=== PATIENT | male | born 1925 | race Caucasian/White ===

== ENCOUNTER 2016-10-27 15:46 | Emergency (ER) | payer BC, MEDICARE ==
[2016-10-27 16:10] VITALS: RESP 18
[2016-10-27] MEDS ORDERED: MECLIZINE 25 MG TAB PO STA ×2 (16:14→18:04)
[2016-10-27] MEDS ORDERED: DIAZEPAM 5 MG/ML 2 ML SYRINGE IVP STA (16:14)
--- NOTE | 2016-10-27 16:18 | ED ---
General Adult HPI - General Chief complaint: Dizziness Stated complaint: Dizzy Time Seen by Provider: 10/27/16 16:00 Source: patient, family, RN notes reviewed Mode of arrival: wheelchair Limitations: no limitations - History of Present Illness Initial comments: This is an 89-year-old male who presents emergency Department complaining of dizziness. Patient states she has to grab onto thinks she's been a fall over. Patient states nausea is also associated with the dizziness. Patient states he has not vomited however. Patient states he has had dizzy spells many times for quite a few years. Patient comes in today because some friends were concerned and they brought him to the emergency department. Patient denies any headache patient denies any numbness or weakness. Patient denies any visual disturbance or speech disturbance. Patient denies any palpitations. Patient denies chest pain difficulty breathing or shortness of breath. Patient denies any recent fever or chills. Patient denies abdominal pain. Patient denies any dysuria hematuria urinary frequency. - Related Data Home Medications Medication Instructions Recorded Confirmed Acetaminophen/Diphenhydramine 1 tab PO HS PRN 10/27/16 10/27/16 [Tylenol PM 500-25mg] Aspirin 325 mg PO HS 10/27/16 10/27/16 Cholecalciferol [Vitamin D3] 1,000 unit PO HS 10/27/16 10/27/16 Doxazosin [Cardura] 4 mg PO HS 10/27/16 10/27/16 Flaxseed Oil [[place]-3 Flaxseed Oil] 1,000 mg PO QAM 10/27/16 10/27/16 Glimepiride [Amaryl] 2 mg PO AC-BRKFST 10/27/16 10/27/16 Glucosamine/Chondr Amaral A Sod [Osteo 1 tab PO QAM 10/27/16 10/27/16 Bi-Flex Caplet] Levothyroxine Sodium [Synthroid] 25 mcg PO QAM 10/27/16 10/27/16 Lisinopril 20 mg PO BID 10/27/16 10/27/16 [place]-3/Dha/Epa/Fish Oil [Fish Oil 1 cap PO QAM 10/27/16 10/27/16 1,000 mg Softgel] Simvastatin 40 mg PO HS 10/27/16 10/27/16 Vitamin E 1,000 unit PO QAM 10/27/16 10/27/16 amLODIPine [Norvasc] 5 mg PO QAM 10/27/16 10/27/16 metFORMIN HCL [Glucophage] 500 mg PO HS 10/27/16 10/27/16 Previous Rx's Medication Instructions Recorded Meclizine [Antivert] 25 mg PO TID #20 tab 10/27/16 Allergies Allergy/AdvReac Type Severity Reaction Status Date / Time No Known Allergies Allergy Verified 10/27/16 16:14 Review of Systems ROS Statement: Those systems with pertinent positive or pertinent negative responses have been documented in the HPI. ROS Other: All systems not noted in ROS Statement are negative. Past Medical History Past Medical History: Dementia, Hyperlipidemia, Hypertension History of Any Multi-Drug Resistant Organisms: None Reported Past Surgical History: No Surgical Hx Reported Past Psychological History: No Psychological Hx Reported Smoking Status: Former smoker Past Alcohol Use History: Occasional Past Drug Use History: None Reported General Exam - General Exam Comments Initial Comments: GENERAL: Patient is well-developed and well-nourished. Patient is nontoxic and well- hydrated and is in mild distress. ENT: Neck is soft and supple. No significant lymphadenopathy is noted. Oropharynx is clear. Moist mucous membranes. Neck has full range of motion without eliciting any pain. EYES: The sclera were anicteric and conjunctiva were pink and moist. Extraocular movements were intact and pupils were equal round and reactive to light. Eyelids were unremarkable. PULMONARY: Patient has crackles in the bilateral bases CARDIOVASCULAR: There is a regular rate and rhythm without any murmurs gallops or rubs. ABDOMEN: Soft and nontender with normal bowel sounds. No palpable organomegaly was noted. There is no palpable pulsatile mass. SKIN: Skin is clear with no lesions or rashes and otherwise unremarkable. NEUROLOGIC: Patient is alert and oriented x3. Cranial nerves II through XII are grossly intact. Motor and sensory are also intact. Normal speech, volume and content. Symmetrical smile. Finger to nose testing bilaterally was normal MUSCULOSKELETAL: Normal extremities with adequate strength and full range of motion. No lower extremity swelling or edema. No calf tenderness. LYMPHATICS: No significant lymphadenopathy is noted PSYCHIATRIC: Normal psychiatric evaluation. Normal interpersonal interactions appears functionally intact in deals appropriately with others. No signs of depression. No signs of anxiety. Limitations: no limitations Course Vital Signs 0610/27/16 10/27/16 15:53 16:09 17:10 Temperature 99.2 F Pulse Rate 78 74 69 Respiratory 20 18 18 Rate Blood Pressure 80/47 126/58 126/66 O2 Sat by Pulse 96 93 L 95 Oximetry 10/27/16 18:13 Temperature 98.0 F Pulse Rate 78 Respiratory 18 Rate Blood Pressure 136/61 O2 Sat by Pulse 96 Oximetry Medical Decision Making - Medical Decision Making EKG shows normal sinus rhythm at 74 bpm AL interval 144 QRS is 110 Q-T intervals 392 QTC is 435 per patient's EKG shows some T-wave inversions and some ST segment depression in leads V4 V5 and V6 as well as leads [address] of the brain shows no acute normalities. Chest x-ray shows no acute normalities. Patient received a little Valium and some Antivert patient was able to ablate without dizziness he stated he had no symptoms at this point. I suggested the patient stated have repeat troponins to make sure the troponins don't continue to elevate patient refused I talked to him again about it he continued to refuse he states she'll follow-up with his doctor on his appointment on - Lab Data Result diagrams: 10/27/16 16:22 10/27/16 16:22 Lab Results 10/27/16 10/27/16 10/27/16 Range/Units 16:22 16:22 16:22 WBC 7.6 (3.8-10.6) k/uL RBC 4.77 (4.30-5.90) m/uL Hgb 14.2 (13.0-17.5) gm/dL Hct 42.9 (39.0-53.0) % MCV 90.1 (80.0-100.0) fL MCH 29.9 (25.0-35.0) pg MCHC 33.2 (31.0-37.0) g/dL RDW 13.7 (11.5-15.5) % Plt Count 155 (150-450) k/uL Neutrophils % 51 % Lymphocytes % 35 % Monocytes % 7 % Eosinophils % 2 % Basophils % 1 % Neutrophils # 3.8 (1.3-7.7) k/uL Lymphocytes # 2.7 (1.0-4.8) k/uL Monocytes # 0.6 (0-1.0) k/uL Eosinophils # 0.1 (0-0.7) k/uL Basophils # 0.1 (0-0.2) k/uL PT (9.0-12.0) sec INR (<1.1) APTT (22.0-30.0) sec Sodium 137 (137-145) mmol/L Potassium 4.3 (3.5-5.1) mmol/L Chloride 102 (98-107) mmol/L Carbon Dioxide 24 (22-30) mmol/L Anion Gap 11 mmol/L BUN 20 (9-20) mg/dL Creatinine 1.10 (0.66-1.25) mg/dL Est GFR (MDRD) Af Amer >60 (>60 ml/min/1.73 sqM) Est GFR (MDRD) Non-Af >60 (>60 ml/min/1.73 sqM) Glucose 113 H (74-99) mg/dL Calcium 9.1 (8.4-10.2) mg/dL Magnesium 1.8 (1.6-2.3) mg/dL Total Bilirubin 0.9 (0.2-1.3) mg/dL AST 28 (17-59) U/L ALT 37 (21-72) U/L Alkaline Phosphatase 71 (38-126) U/L Total Creatine Kinase 74 (55-170) U/L CK-MB (CK-2) 0.7 (0.0-2.4) ng/mL CK-MB (CK-2) Rel Index 0.9 Troponin I 0.049 H* (0.000-0.034) ng/mL Total Protein 6.7 (6.3-8.2) g/dL Albumin 4.0 (3.5-5.0) g/dL 10/27/16 Range/Units 16:22 WBC (3.8-10.6) k/uL RBC (4.30-5.90) m/uL Hgb (13.0-17.5) gm/dL Hct (39.0-53.0) % MCV (80.0-100.0) fL MCH (25.0-35.0) pg MCHC (31.0-37.0) g/dL RDW (11.5-15.5) % Plt Count (150-450) k/uL Neutrophils % % Lymphocytes % % Monocytes % % Eosinophils % % Basophils % % Neutrophils # (1.3-7.7) k/uL Lymphocytes # (1.0-4.8) k/uL Monocytes # (0-1.0) k/uL Eosinophils # (0-0.7) k/uL Basophils # (0-0.2) k/uL PT 11.0 (9.0-12.0) sec INR 1.1 (<1.1) APTT 24.2 (22.0-30.0) sec Sodium (137-145) mmol/L Potassium (3.5-5.1) mmol/L Chloride (98-107) mmol/L Carbon Dioxide (22-30) mmol/L Anion Gap mmol/L BUN (9-20) mg/dL Creatinine (0.66-1.25) mg/dL Est GFR (MDRD) Af Amer (>60 ml/min/1.73 sqM) Est GFR (MDRD) Non-Af (>60 ml/min/1.73 sqM) Glucose (74-99) mg/dL Calcium (8.4-10.2) mg/dL Magnesium (1.6-2.3) mg/dL Total Bilirubin (0.2-1.3) mg/dL AST (17-59) U/L ALT (21-72) U/L Alkaline Phosphatase (38-126) U/L Total Creatine Kinase (55-170) U/L CK-MB (CK-2) (0.0-2.4) ng/mL CK-MB (CK-2) Rel Index Troponin I (0.000-0.034) ng/mL Total Protein (6.3-8.2) g/dL Albumin (3.5-5.0) g/dL Disposition Clinical Impression: Vertigo, Elevated troponin Disposition: HOME SELF-CARE Condition: Good Instructions: Vertigo (ED) Prescriptions: Meclizine [Antivert] 25 mg PO TID #20 tab Referrals: Tommy Lau MD [Primary Care Provider] - 1-2 days Time of Disposition: 18:20
[2016-10-27 16:41] LABS: Basophils # (A) 0.1 k/uL (0-0.2); Basophils % (A) 1 %; CH 30.3; CHCM 33.7; Eosinophils # (A) 0.1 k/uL (0-0.7); Eosinophils % (A) 2 %; HCT 42.9 % (39.0-53.0); HDW 2.44; HGB 14.2 gm/dL (13.0-17.5); Luc # (Auto) 0.34; Luc % (Auto) 5; Lymphocytes # (A) 2.7 k/uL (1.0-4.8); Lymphocytes % (A) 35 %; MCH 29.9 pg (25.0-35.0); MCHC 33.2 g/dL (31.0-37.0); MCV 90.1 fL (80.0-100.0); Mean Platelet Volume 6.5; Monocytes # (A) 0.6 k/uL (0-1.0); Monocytes % (A) 7 %; Neutrophils # (A) 3.8 k/uL (1.3-7.7); Neutrophils % (A) 51 %; RBC 4.77 m/uL (4.30-5.90); RDW 13.7 % (11.5-15.5); WBC 7.6 k/uL (3.8-10.6); WBC (Perox) 7.38
[2016-10-27 16:49] LABS: ALT 37 U/L (21-72); AST 28 U/L (17-59); Alkaline Phosphatase 71 U/L (38-126); Anion Gap 11 mmol/L; Blood Urea Nitrogen 20 mg/dL (9-20); Calcium 9.1 mg/dL (8.4-10.2); Carbon Dioxide 24 mmol/L (22-30); Chloride 102 mmol/L (98-107); Glucose 113 mg/dL (74-99); Magnesium 1.8 mg/dL (1.6-2.3); Non-African American GFR(MDRD) >60 (>60 ml/min/1.73 sqM); Potassium 4.3 mmol/L (3.5-5.1); Sodium 137 mmol/L (137-145); Total Bilirubin 0.9 mg/dL (0.2-1.3); Total Protein 6.7 g/dL (6.3-8.2)
[2016-10-27 16:52] LABS: INR 1.1 (<1.1); Partial Thromboplastin Time 24.2 sec (22.0-30.0)
--- NOTE | 2016-10-27 17:06 | CT ---
EXAMINATION TYPE: CT brain wo con DATE OF EXAM: 10/27/2016 COMPARISON: NONE HISTORY: Dizziness and weakness CT DLP: 1121 mGycm Automated exposure control for dose reduction was used. FINDINGS: There is no acute intracranial hemorrhage, mass effect, or midline shift identified. The ventricles and sulci are within normal limits in size. The globes are intact and the visualized sinuses are christel ar. IMPRESSION: No acute intracranial hemorrhage, mass effect, or midline shift is seen.
[2016-10-27 17:19] LABS: Creatine Kinase MB 0.7 ng/mL (0.0-2.4)
[2016-10-27 17:22] LABS: Troponin I 0.049 ng/mL (0.000-0.034)
--- NOTE | 2016-10-27 17:24 | XR ---
EXAMINATION TYPE: XR chest 2V DATE OF EXAM: 10/27/2016 COMPARISON: NONE HISTORY: Dizziness TECHNIQUE: Frontal and lateral views of the chest are obtained. FINDINGS: There is general coarsening of interstitial markings with some mild honeycomb interstitial infiltrate at the lung bases. Heart size is normal. There is no gross heart failure. Thoracic aorta is atheromatous. There are chest leads. Bony thorax appears intact. IMPRESSION: Pulmonary interstitial fibrosis. This appears worse at the lung bases. No heart failure.
[2016-10-27 18:24] VITALS: BP 132/60; PULSE 73; TEMP 97.4
== END 2016-10-27 18:47 | disposition home or self-care (01) ==
LOC: EC 15:46
DX: R42 Dizziness and giddiness (principal); R79.89 Other specified abnormal findings of blood chemistry; F03.90 Unspecified dementia, unspecified severity, without behavioral disturbance, psychotic disturbance, mood disturbance, and anxiety; E78.5 Hyperlipidemia, unspecified; I10 Essential (primary) hypertension; Z87.891 Personal history of nicotine dependence; Z79.82 Long term (current) use of aspirin; Z79.84 Long term (current) use of oral hypoglycemic drugs; Z79.899 Other long term (current) drug therapy
CPT/HCPCS: 36415; 80053; 82550; 82553; 83735; 84484; 85025; 85610; 85730; 71020; 70450; 99284; 96374; J3360; 93005

== ENCOUNTER 2016-10-29 14:39 | Inpatient (IN) | payer MEDICARE ==
[2016-10-29] MEDS ORDERED: SODIUM CHLORIDE 0.9% 1,000 ML IV STA ×2 (15:10)
--- NOTE | 2016-10-29 15:13 | ED ---
Weakness HPI - General Chief complaint: Weakness Stated complaint: Weakness Time Seen by Provider: 10/29/16 14:39 Source: patient, EMS, RN notes reviewed Mode of arrival: EMS Limitations: no limitations - History of Present Illness Initial comments: This is a 89-year-old male was brought in by EMS after suffering weakness for last 3 days. He has had decreased appetite with decreased oral intake he states also he fell last evening when he got out of bed he is not showing up on the floor be believes he hit the door frame on the way down he complains some nose pain. This only EMS 7.8 temperature. Hypotensive 90/50 after 900 mL fluid was 124/56. He has a cough and runny nose earache sore throat focal weakness was upper or lower extremities. Of note the patient was seen in the emergency department several days ago. He was offered admission but refused to stay. MD Complaint: generalized weakness - Related Data Home Medications Medication Instructions Recorded Confirmed Acetaminophen/Diphenhydramine 1 tab PO HS PRN 10/27/16 10/29/16 [Tylenol PM 500-25mg] Aspirin 325 mg PO HS 10/27/16 10/29/16 Cholecalciferol [Vitamin D3] 1,000 unit PO HS 10/27/16 10/29/16 Doxazosin [Cardura] 4 mg PO HS 10/27/16 10/29/16 Flaxseed Oil [[place]-3 Flaxseed Oil] 1,000 mg PO QAM 10/27/16 10/29/16 Glimepiride [Amaryl] 2 mg PO AC-BRKFST 10/27/16 10/29/16 Glucosamine/Chondr Amaral A Sod [Osteo 1 tab PO QAM 10/27/16 10/29/16 Bi-Flex Caplet] Levothyroxine Sodium [Synthroid] 25 mcg PO QAM 10/27/16 10/29/16 Lisinopril 20 mg PO BID 10/27/16 10/29/16 [place]-3/Dha/Epa/Fish Oil [Fish Oil 1 cap PO [facility] 10/27/16 10/29/16 1,000 mg Softgel] Simvastatin 40 mg PO HS 10/27/16 10/29/16 Vitamin E 1,000 unit PO QAM 10/27/16 10/29/16 amLODIPine [Norvasc] 5 mg PO QA 10/27/16 10/29/16 metFORMIN HCL [Glucophage] 500 mg PO HS 10/27/16 10/29/16 Previous Rx's Medication Instructions Recorded Meclizine [Antivert] 25 mg PO TID #20 tab 10/27/16 Allergies Allergy/AdvReac Type Severity Reaction Status Date / Time No Known Allergies Allergy Verified 10/29/16 15:20 Review of Systems ROS Statement: Those systems with pertinent positive or pertinent negative responses have been documented in the HPI. ROS Other: All systems not noted in ROS Statement are negative. Past Medical History Past Medical History: Dementia, Hyperlipidemia, Hypertension History of Any Multi-Drug Resistant Organisms: None Reported Past Surgical History: No Surgical Hx Reported Past Psychological History: No Psychological Hx Reported Smoking Status: Former smoker Past Alcohol Use History: Occasional Past Drug Use History: None Reported General Exam - General Exam Comments Initial Comments: This is a well-developed well-nourished awake alert oriented 3 male his [place] Coma Scale of 15 Limitations: no limitations General appearance: alert, in no apparent distress Head exam: Present: normocephalic, other (Abrasions over the bridge of nose and over the left side of nose was tenderness palpation no step-off or crepitation) Eye exam: Present: normal appearance, PERRL, EOMI. Absent: scleral icterus, conjunctival injection, periorbital swelling ENT exam: Present: mucous membranes dry Neck exam: Present: normal inspection. Absent: tenderness, meningismus, lymphadenopathy Respiratory exam: Present: normal lung sounds bilaterally. Absent: respiratory distress, wheezes, rales, rhonchi, stridor Cardiovascular Exam: Present: regular rate, normal rhythm, normal heart sounds. Absent: systolic murmur, diastolic murmur, rubs, gallop, clicks GI/Abdominal exam: Present: soft, normal bowel sounds. Absent: distended, tenderness, guarding, rebound, rigid Extremities exam: Present: normal inspection, full ROM, normal capillary refill. Absent: tenderness, pedal edema, joint swelling, calf tenderness Back exam: Present: normal inspection Neurological exam: Present: alert, oriented X3, CN II-XII intact Psychiatric exam: Present: normal affect, normal mood Skin exam: Present: warm, dry, intact, normal color. Absent: rash Course Vital Signs 10/29/16 10/29/16 10/29/16 14:42 15:15 16:00 Temperature 98.8 F 98.8 F 100.1 F H Pulse Rate 68 70 77 Respiratory 16 16 16 Rate Blood Pressure 132/62 143/63 155/68 O2 Sat by Pulse 92 L 94 L 96 Oximetry 10/29/16 10/29/16 10/29/16 16:17 17:00 18:00 Temperature 99.6 F 98.2 F 98.4 F Pulse Rate 76 72 66 Respiratory 14 16 16 Rate Blood Pressure 142/66 141/64 113/58 O2 Sat by Pulse 95 93 L 91 L Oximetry 10/29/16 10/29/16 18:28 18:54 Temperature 98.4 F 99.1 F Pulse Rate 66 66 Respiratory 16 16 Rate Blood Pressure 110/53 152/60 O2 Sat by Pulse 90 L 90 L Oximetry EKG Findings - EKG Results: EKG: interpreted by JOSE LUIS, sinus rhythm (Sinus rhythm rate 68. Ago 14 QRS duration 116 QT/QTC of 420/466 that exodeviation incomplete left bundle-branch block nonspecific ST-T wave configuration.) Medical Decision Making - Medical Decision Making I did discuss findings with patient family patient be admitted I did discuss case with Dr. Daniel. - Lab Data Result diagrams: 10/29/16 15:00 10/29/16 15:00 Lab Results 10/29/16 10/29/16 10/29/16 Range/Units 15:00 15:00 15:00 WBC 7.2 (3.8-10.6) k/uL RBC 4.20 L (4.30-5.90) m/uL Hgb 13.1 (13.0-17.5) gm/dL Hct 36.4 L (39.0-53.0) % MCV 86.6 (80.0-100.0) fL MCH 31.3 (25.0-35.0) pg MCHC 36.1 (31.0-37.0) g/dL RDW 13.5 (11.5-15.5) % Plt Count 180 (150-450) k/uL Neutrophils % (Manual) 64.0 % Lymphocytes % (Manual) 30.0 % Monocytes % (Manual) 4.0 % Eosinophils % (Manual) 2.0 % Neutrophils # (Manual) 4.6 (1.3-7.7) k/uL Lymphocytes # (Manual) 2.2 (1.0-4.8) k/uL Monocytes # (Manual) 0.3 (0-1.0) k/uL Eosinophils # (Manual) 0.1 (0-0.7) k/uL Nucleated RBCs 0 (0-0) /100 WBC Polychromasia Present Poikilocytosis Slight PT (9.0-12.0) sec INR (<1.1) APTT (22.0-30.0) sec D-Dimer (<0.60) mg/L FEU Sodium 137 (137-145) mmol/L Potassium 4.1 (3.5-5.1) mmol/L Chloride 105 (98-107) mmol/L Carbon Dioxide 21 L (22-30) mmol/L Anion Gap 11 mmol/L BUN 32 H (9-20) mg/dL Creatinine 1.69 H (0.66-1.25) mg/dL Est GFR (MDRD) Af Amer 47 (>60 ml/min/1.73 sqM) Est GFR (MDRD) Non-Af 38 (>60 ml/min/1.73 sqM) Glucose 137 H (74-99) mg/dL Calcium 8.6 (8.4-10.2) mg/dL Magnesium 2.1 (1.6-2.3) mg/dL Total Bilirubin 1.0 (0.2-1.3) mg/dL AST 26 (17-59) U/L ALT 24 (21-72) U/L Alkaline Phosphatase 67 (38-126) U/L Total Creatine Kinase 106 (55-170) U/L CK-MB (CK-2) 1.2 (0.0-2.4) ng/mL CK-MB (CK-2) Rel Index 1.1 Troponin I 0.018 (0.000-0.034) ng/mL NT-Pro-B Natriuret Pep pg/mL Total Protein 6.4 (6.3-8.2) g/dL Albumin 3.5 (3.5-5.0) g/dL Urine Color Urine Appearance (Clear) Urine pH (5.0-8.0) Ur Specific [place] (1.001-1.035) Urine Protein (Negative) Urine Glucose (UA) (Negative) Urine Ketones (Negative) Urine Blood (Negative) Urine Nitrite (Negative) Urine Bilirubin (Negative) Urine Urobilinogen (<2.0) mg/dL Ur Leukocyte Esterase (Negative) Urine RBC (0-5) /hpf Ur Squamous Epith Cells (0-4) /hpf Urine Bacteria (None) /hpf Hyaline Casts (0-2) /lpf Urine Mucus (None) /hpf Urine Yeast (Budding) (None) /hpf 10/29/16 10/29/16 10/29/16 Range/Units 15:00 15:00 16:35 WBC (3.8-10.6) k/uL RBC (4.30-5.90) m/uL Hgb (13.0-17.5) gm/dL Hct (39.0-53.0) % MCV (80.0-100.0) fL MCH (25.0-35.0) pg MCHC (31.0-37.0) g/dL RDW (11.5-15.5) % Plt Count (150-450) k/uL Neutrophils % (Manual) % Lymphocytes % (Manual) % Monocytes % (Manual) % Eosinophils % (Manual) % Neutrophils # (Manual) (1.3-7.7) k/uL Lymphocytes # (Manual) (1.0-4.8) k/uL Monocytes # (Manual) (0-1.0) k/uL Eosinophils # (Manual) (0-0.7) k/uL Nucleated RBCs (0-0) /100 WBC Polychromasia Poikilocytosis PT 11.2 (9.0-12.0) sec INR 1.1 (<1.1) APTT 27.3 (22.0-30.0) sec D-Dimer 2.14 H (<0.60) mg/L FEU Sodium (137-145) mmol/L Potassium (3.5-5.1) mmol/L Chloride (98-107) mmol/L Carbon Dioxide (22-30) mmol/L Anion Gap mmol/L BUN (9-20) mg/dL Creatinine (0.66-1.25) mg/dL Est GFR (MDRD) Af Amer (>60 ml/min/1.73 sqM) Est GFR (MDRD) Non-Af (>60 ml/min/1.73 sqM) Glucose (74-99) mg/dL Calcium (8.4-10.2) mg/dL Magnesium (1.6-2.3) mg/dL Total Bilirubin (0.2-1.3) mg/dL AST (17-59) U/L ALT (21-72) U/L Alkaline Phosphatase (38-126) U/L Total Creatine Kinase (55-170) U/L CK-MB (CK-2) (0.0-2.4) ng/mL CK-MB (CK-2) Rel Index Troponin I (0.000-0.034) ng/mL NT-Pro-B Natriuret Pep 496 pg/mL Total Protein (6.3-8.2) g/dL Albumin (3.5-5.0) g/dL Urine Color Yellow Urine Appearance Cloudy (Clear) Urine pH 5.0 (5.0-8.0) Ur Specific [place] 1.019 (1.001-1.035) Urine Protein 1+ H (Negative) Urine Glucose (UA) Negative (Negative) Urine Ketones Negative (Negative) Urine Blood Negative (Negative) Urine Nitrite Negative (Negative) Urine Bilirubin Negative (Negative) Urine Urobilinogen 2.0 (<2.0) mg/dL Ur Leukocyte Esterase Negative (Negative) Urine RBC 14 H (0-5) /hpf Ur Squamous Epith Cells <1 (0-4) /hpf Urine Bacteria Rare H (None) /hpf Hyaline Casts 17 H (0-2) /lpf Urine Mucus Rare H (None) /hpf Urine Yeast (Budding) Few H (None) /hpf - Radiology Data Radiology results: report reviewed (I did review the imaging and reports no acute findings.), image reviewed Disposition Clinical Impression: Febrile illness, acute, Renal insufficiency syndrome, Fever of unknown origin ( FUO), Hypotensive episode Disposition: ADMITTED IP TO [facility] Condition: Stable Referrals: Tommy Lau MD [Primary Care Provider] - 1-2 days
[2016-10-29 15:42] LABS: Aty Lym Flag Slight; CH 29.8; CHCM 34.6; HCT 36.4 % (39.0-53.0); HDW 3.51; HGB 13.1 gm/dL (13.0-17.5); Large Platelets Flag Slight; MCH 31.3 pg (25.0-35.0); MCHC 36.1 g/dL (31.0-37.0); MCV 86.6 fL (80.0-100.0); Mean Platelet Volume 10.6; Poikilocytosis Slight; RDW 13.5 % (11.5-15.5); WBC 7.2 k/uL (3.8-10.6)
[2016-10-29 15:49] LABS: Calcium 8.6 mg/dL (8.4-10.2); Magnesium 2.1 mg/dL (1.6-2.3); Potassium 4.1 mmol/L (3.5-5.1); Total Protein 6.4 g/dL (6.3-8.2)
[2016-10-29 15:52] LABS: Add Differential Manual Differential
[2016-10-29 15:53] LABS: Nucleated Red Blood Cells 0 /100 WBC (0-0); Polychromasia Present; Total Cells Counted 100
[2016-10-29 15:57] LABS: INR 1.1 (<1.1); Partial Thromboplastin Time 27.3 sec (22.0-30.0); Prothrombin Time 11.2 sec (9.0-12.0)
--- NOTE | 2016-10-29 16:04 | XR ---
EXAMINATION TYPE: XR chest 2V DATE OF EXAM: 10/29/2016 COMPARISON: Chest x-ray October 27, 2016. HISTORY: Weakness. TECHNIQUE: Frontal and lateral views of the chest are obtained. FINDINGS: Chronic reticular parenchymal changes are present bilaterally most pronounced in the bases . There is no suspicious focal air space opacity, pleural effusion, or pneumothorax seen. The cardia c silhouette size is within normal limits with atherosclerotic thoracic aorta. The osseous structur es are demineralized. IMPRESSION: Chronic interstitial fibrosis bilaterally, no suspicious focal infiltrate. No significan t change from prior.
--- NOTE | 2016-10-29 16:09 | CT ---
EXAMINATION TYPE: CT brain cspine wo con DATE OF EXAM: 10/29/2016 COMPARISON: Prior exam 10/27/2016 HISTORY: Fall injury yesterday. CT DLP: 2391 mGycm Automated exposure control for dose reduction was used. TECHNIQUE: CT scan of the head and cervical spine are performed without contrast. FINDINGS: There is no acute intracranial hemorrhage, mass effect, or midline shift identified. The ventricles and sulci are within normal limits in size. Cortical atrophy is present. Periventricular white matter shows patchy low attenuation. Cerebral vascular calcifications are noted. The globes are intact and the visualized sinuses are clear. Cervical spine is visualized in its entirety from C1 through upper thoracic levels and demonstrates s atisfactory alignment without evidence of acute fracture or dislocation. Prevertebral soft tissue ap pears within normal limits. Lung apices show emphysematous change. There is multilevel spondylosis, loss of disc height is present at C5-6, C6-7. Multilevel foraminal encroachment is noted. The C1-C2 a rticulation is unremarkable. IMPRESSION: 1. There is no acute fracture or dislocation evident in the cervical spine. 2. No acute intracranial hemorrhage, mass effect, or midline shift is seen.
--- NOTE | 2016-10-29 16:11 | CT ---
EXAMINATION TYPE: CT facial bones wo con DATE OF EXAM: 10/29/2016 COMPARISON: CT cervical spine and brain same date HISTORY: Fall injury yesterday. CT DLP: 2391 mGycm Automated exposure control for dose reduction was used. TECHNIQUE: CT scan of the sinuses is performed without contrast, axial images are obtained, coronal r eformatted images are also reviewed. FINDINGS: The paranasal sinuses including the frontal, ethmoid, sphenoid, and maxillary sinuses bila terally are well-aerated without abnormal opacification. The ostiomeatal complex is patent bilateral ly on the coronal images. Visualized portion of mastoid air cells show no abnormal opacification. The globes are intact bilate rally. IMPRESSION: The sinuses are clear and the ostiomeatal complex is patent bilaterally.
[2016-10-29] MEDS ORDERED: ACETAMINOPHEN TAB 500 MG TAB PO STA (16:23)
[2016-10-29 16:28] LABS: Creatine Kinase MB 1.2 ng/mL (0.0-2.4); Troponin I 0.018 ng/mL (0.000-0.034)
[2016-10-29 17:04] LABS: Appearance,Urine Cloudy (Clear); Bacteria,Urine Rare /hpf; Bilirubin,Urine Negative (Negative); Glucose,Urine (UA) Negative (Negative); Ketones,Urine Negative (Negative); Leukocyte Esterase,Urine Negative (Negative); Mucus,Urine Rare /hpf; Nitrite,Urine Negative (Negative); Particle Count 7873; Protein,Urine 1+ (Negative); RBC,Urine 14 /hpf (0-5); Specific Gravity,Urine 1.019 (1.001-1.035); Squamous Epithelial Cell,Urine <1 /hpf (0-4); UA Billing (MACRO vs. MICRO) MICRO
[2016-10-29] MEDS ORDERED: ACETAMINOPHEN TAB 325 MG TAB PO PRN (19:23)
[2016-10-29] MEDS ORDERED: NALOXONE 0.4 MG/ML 1 ML VIAL IV PRN (19:23)
[2016-10-29] MEDS ORDERED: metFORMIN 500 MG TAB PO SCH (21:00)
[2016-10-29 21:27] LABS: Glucose,Whole Blood 172 mg/dL (75-99)
[2016-10-29 22:31] LABS: Hemoglobin A1C 6.5 % (4.2-6.1)
[2016-10-29] MEDS: ASPIRIN 325 MG TAB PO SCH (22:31)
[2016-10-29] MEDS: MECLIZINE 25 MG TAB PO SCH (22:31)
[2016-10-29] MEDS: LISINOPRIL 20 MG TAB PO SCH (22:31)
[2016-10-29] MEDS: DOXAZOSIN 4 MG TAB PO SCH (22:31)
[2016-10-29] MEDS: ATORVASTATIN 20 MG TAB PO SCH (22:31)
[2016-10-29] MEDS: INSULIN LISPRO (humaLOG) 300 UNIT/3 ML VIAL SQ SCH (22:32)
[2016-10-29] MEDS: SODIUM CHLORIDE 0.9% 1,000 ML IV SCH (22:33)
[2016-10-29 22:34] LABS: Glucose,Whole Blood 163 mg/dL (75-99)
[2016-10-30] MEDS: LEVOTHYROXINE 25 MCG TAB PO SCH (05:50)
[2016-10-30] MEDS: SODIUM CHLORIDE 0.9% 1,000 ML IV SCH ×2 (05:50→16:38)
[2016-10-30 07:21] LABS: Glucose,Whole Blood 135 mg/dL (75-99)
[2016-10-30] MEDS: GLIMEPIRIDE 2 MG TAB PO SCH (07:37)
[2016-10-30] MEDS: amLODIPine 5 MG TAB PO SCH (07:37)
[2016-10-30] MEDS: MECLIZINE 25 MG TAB PO SCH ×3 (07:38→20:55)
[2016-10-30] MEDS: LISINOPRIL 20 MG TAB PO SCH ×2 (07:38→20:55)
[2016-10-30] MEDS: INSULIN LISPRO (humaLOG) 300 UNIT/3 ML VIAL SQ SCH ×4 (07:38→21:01)
[2016-10-30 11:53] LABS: Glucose,Whole Blood 122 mg/dL (75-99)
--- NOTE | 2016-10-30 14:31 | P.HPIM ---
History of Present Illness H&P Date: 10/30/16 Chief Complaint: Falls dizziness This is an 89-year-old gentleman patient of Dr. Dereck Lau. He has underlying history of hyperlipidemia hypertension diabetes mellitus type 2, hypothyroidism admitted to the hospital brought in after DMS has been sought when patient complains off ongoing weakness for the past 3 days he also has decreased appetite and diarrhea, he was last seen in emergency room also 3 days prior to admission for which he was given meclizine for the dizziness. Patient was noted to have diarrhea for approximately one week his last bowel movement was yesterday, he was hypotensive on this current ER evaluation with systolic of 90/50, patient also was noted to be febrile there is no abdominal pain, no dysuria initial cough has improved no throat pain patient denies any injury during her last fall at home and was able to get up and get some assistance. Patient lives with the son and the [id number]. Patient does not require any assistive devices for ambulation including cane or walker, no O2 requirements at home. His last colonoscopy was performed approximately 5 years ago in [place], in the emergency room, chest x-ray fails to reveal any acute infiltrate, he has acute renal insufficiency, creatinine of 1.69, urinalysis only shows proteinuria otherwise unremarkable, d-dimer slightly elevated at 2.14 EKG shows left axis deviation with left bundle branch block, sinus nonspecific ST-T wave change. Patient currently is hydrated IV, possibility off a transient gastroenteritis, orthostatics will be done including carotid Doppler for carotid bruit that was noted Review of Systems Constitutional: Reports as per HPI, Reports anorexia, Reports fever, Reports poor appetite, Denies chills, Denies chronic headaches, Denies chronic pain, Denies daytime sleepiness, Denies fatigue, Denies lethargy, Denies malaise, Denies night sweats, Denies sweats, Denies weakness, Denies weight gain, Denies weight loss Ears, nose, mouth and throat: Reports as per HPI, Denies ant. neck pain, Denies bleeding gums, Denies dental pain, Denies dysphagia, Denies epistaxis, Denies headache, Denies hoarseness, Denies mouth pain, Denies nasal congestion, Denies nasal discharge, Denies neck fullness/pressure, Denies neck lump, Denies nose pain, Denies odynophagia, Denies post-nasal drip, Denies sinus pain, Denies sinus pressure, Denies swelling in mouth, Denies swelling in throat, Denies sore throat, Denies vertigo, Denies voice changes Cardiovascular: Reports as per HPI, Denies chest pain, Denies claudication, Denies decreased exercise tolerance, Denies dyspnea on exertion, Denies edema, Denies high blood pressure, Denies irregular heart beat, Denies leg edema, Denies lightheadedness, Denies orthopnea, Denies palpitations, Denies paroxysmal nocturnal dyspnea, Denies phlebitis, Denies rapid heart beat, Denies shortness of breath, Denies syncope Respiratory: Reports as per HPI, Denies congestion, Denies cough, Denies cough with sputum, Denies dyspnea, Denies excessive sputum, Denies hemoptysis, Denies home oxygen, Denies pain, Denies pain on inspiration, Denies pleurisy, Denies respiratory infections, Denies sleep apnea, Denies snoring, Denies wheezing Gastrointestinal: Reports as per HPI, Denies abdominal pain, Denies belching, Denies bloating, Denies BRBPR, Denies change in bowel habits, Denies coffee ground emesis, Denies constipation, Denies diarrhea, Denies dyspepsia, Denies early satiety, Denies excessive gas, Denies heartburn, Denies hematemesis, Denies hematochezia, Denies indigestion, Denies jaundice, Denies lactose intolerance, Denies loss of appetite, Denies melena, Denies nausea, Denies vomiting Genitourinary: Reports as per HPI, Denies decreased libido, Denies difficulties fathering child, Denies discharge, Denies dysuria, Denies erectile dysfunction, Denies flank pain, Denies genital pain, Denies genital sores, Denies hematuria, Denies impotence, Denies incontinence, Denies kidney stones, Denies nocturia, Denies polyuria, Denies testicular lump, Denies testicular pain, Denies urinary frequency, Denies urinary hesitancy, Denies urinary retention Musculoskeletal: Reports as per HPI, Reports gait dysfunction, Denies arm numbness/tingling, Denies atrophy, Denies fractures, Denies hot joints, Denies leg numbness/tingling, Denies limitation of motion, Denies loss of height, Denies low back pain, Denies morning stiffness, Denies muscle cramps, Denies muscle weakness, Denies myalgias, Denies neck pain, Denies neck stiffness, Denies prior amputations, Denies redness of joints, Denies shooting arm pain, Denies shooting leg pain Integumentary: Reports as per HPI, Denies acne, Denies boils, Denies brittle nails, Denies change in hair/nails, Denies color changes, Denies darkening of skin, Denies depigmentation, Denies dryness, Denies foot/leg ulcers, Denies growths, Denies hirsutism, Denies lesions, Denies onychomycosis, Denies pruritus , Denies rash, Denies sores, Denies striae, Denies unusual bruising, Denies wounds Neurological: Reports as per HPI, Denies aphasia, Denies ataxia, Denies balance difficulties, Denies burning pain, Denies change in mentation, Denies change in smell/taste, Denies change in speech, Denies confusion, Denies convulsions, Denies double vision, Denies gait dysfunction, Denies head injury, Denies headaches, Denies hearing difficulties, Denies lack of coordination, Denies loss of vision, Denies memory loss, Denies migraines, Denies motor disturbance, Denies numbness, Denies paralysis, Denies paresthesias, Denies seizures, Denies sensory deficit, Denies spasticity, Denies syncope, Denies tic, Denies tingling , Denies transient paralysis, Denies tremors, Denies vertigo, Denies weakness, Denies visual changes Psychiatric: Reports as per HPI, Denies anhedonia, Denies anxiety, Denies anxiety attacks, Denies change in appetite, Denies change in libido, Denies change in sleep habits, Denies confusion, Denies depression, Denies difficulty concentrating, Denies disorientation, Denies hallucinations, Denies hopelessness , Denies hypersomnia, Denies insomnia, Denies irritability, Denies memory loss, Denies mood swings, Denies paranoia, Denies sadness/tearfulness, Denies sleep disturbances, Denies suicidal ideation Endocrine: Reports as per HPI, Denies cold intolerance, Denies deepening of the voice, Denies excessive sweating, Denies excessive thirst, Denies fatigue, Denies flushing, Denies heat intolerance, Denies high blood sugars, Denies increase in ring/shoe/hat size, Denies low blood sugars, Denies nocturia, Denies palpitations, Denies polydipsia, Denies polyphagia, Denies polyuria, Denies proptosis, Denies recent glucocorticoid use, Denies thyroid mass, Denies weight change Hematologic/Lymphatic: Reports as per HPI, Denies easy bleeding, Denies easy bruising, Denies lymphadenopathy, Denies lymphedema, Denies thrombophilia Allergic/Immunologic: Reports as per HPI, Denies allergic rhinitis, Denies anaphylaxis, Denies angioedema, Denies gluten intolerance, Denies persistent infections, Denies seasonal allergies, Denies urticaria, Denies wheezing Past Medical History Past Medical History: Dementia, Hyperlipidemia, Hypertension History of Any Multi-Drug Resistant Organisms: None Reported Past Surgical History: No Surgical Hx Reported (Except for cataract surgery bilateral colonoscopy in [place] at least 5 years ago) Past Anesthesia/Blood Transfusion Reactions: No Reported Reaction Past Psychological History: No Psychological Hx Reported Smoking Status: Former smoker Past Alcohol Use History: Occasional Past Drug Use History: None Reported - Past Family History Mother Family Medical History: No Reported History ( at age 71 from medical complications) Father Family Medical History: Coronary Artery Disease (CAD) ( at age 69) Brother(s) Family Medical History: Coronary Artery Disease (CAD) Sister(s) Family Medical History: No Reported History Son(s) Family Medical History: Diabetes Mellitus Medications and Allergies Home Medications Medication Instructions Recorded Confirmed Type Acetaminophen/Diphenhydramine 1 tab PO HS PRN 10/27/16 10/29/16 History [Tylenol PM 500-25mg] Aspirin 325 mg PO HS 10/27/16 10/29/16 History Cholecalciferol [Vitamin D3] 1,000 unit PO HS 10/27/16 10/29/16 History Doxazosin [Cardura] 4 mg PO HS 10/27/16 10/29/16 History Flaxseed Oil [Bonaparte-3 Flaxseed Oil] 1,000 mg PO QAM 10/27/16 10/29/16 History Glimepiride [Amaryl] 2 mg PO AC-BRKFST 10/27/16 10/29/16 History Glucosamine/Chondr Amaral A Sod [Osteo 1 tab PO QAM 10/27/16 10/29/16 History Bi-Flex Caplet] Levothyroxine Sodium [Synthroid] 25 mcg PO QAM 10/27/16 10/29/16 History Lisinopril 20 mg PO BID 10/27/16 10/29/16 History Bonaparte-3/Dha/Epa/Fish Oil [Fish Oil 1 cap PO QAM 10/27/16 10/29/16 History 1,000 mg Softgel] Simvastatin 40 mg PO HS 10/27/16 10/29/16 History Vitamin E 1,000 unit PO QAM 10/27/16 10/29/16 History amLODIPine [Norvasc] 5 mg PO QAM 10/27/16 10/29/16 History metFORMIN HCL [Glucophage] 500 mg PO HS 10/27/16 10/29/16 History Allergies Allergy/AdvReac Type Severity Reaction Status Date / Time No Known Allergies Allergy Verified 10/29/16 15:20 Physical Exam Vitals: Vital Signs Temp Pulse Pulse Resp BP BP Pulse Ox 10/30/16 07:00 97.5 F L 73 18 162/66 96 10/29/16 23:00 97.1 F L 64 16 130/53 91 L 10/29/16 20:45 98.0 F 67 16 152/67 95 10/29/16 20:29 97.1 F L 10/29/16 20:00 83 18 111/63 95 10/29/16 18:54 99.1 F 66 16 152/60 90 L 10/29/16 18:28 98.4 F 66 16 110/53 90 L 10/29/16 18:00 98.4 F 66 16 113/58 91 L 10/29/16 17:00 98.2 F 72 16 141/64 93 L 10/29/16 16:17 99.6 F 76 14 142/66 95 10/29/16 16:00 100.1 F H 77 16 155/68 96 10/29/16 15:15 98.8 F 70 16 143/63 94 L 10/29/16 14:42 98.8 F 68 16 132/62 92 L Intake and Output 10/29/16 10/30/16 10/30/16 22:59 06:59 14:59 Intake Total 600 Output Total 350 200 250 Balance 250 -200 -250 Intake: Oral 600 Output: Urine 350 200 250 Straight 350 Other: Voiding Method Urinal # Bowel Movements 0 0 - Constitutional General appearance: average body habitus, no acute distress - EENT Eyes: anicteric sclerae, EOMI, PERRLA, dentition normal, normal appearance ENT: hearing grossly normal, NA/AT, normal oropharynx - Neck Neck: no lymphadenopathy, normal ROM, no other, no rigidity, no stridor, no thyromegaly Thyroid: negative: nodule - Cardiovascular Rhythm: regular Heart sounds: normal: S1, S2 Abnormal Heart Sounds: systolic murmur - Gastrointestinal General gastrointestinal: normal bowel sounds, soft - Integumentary Integumentary: normal, normal turgor - Neurologic Neurologic: CNII-XII intact - Musculoskeletal Musculoskeletal: gait normal, strength equal bilaterally - Psychiatric Psychiatric: A&O x's 3, appropriate affect, intact judgment & insight Results CBC & Chem 7: 10/29/16 15:00 10/29/16 15:00 Labs: Abnormal Lab Results - Last 24 Hours (Table) 10/29/16 10/29/16 10/29/16 Range/Units 15:00 15:00 15:00 RBC 4.20 L (4.30-5.90) m/uL Hct 36.4 L (39.0-53.0) % D-Dimer 2.14 H (<0.60) mg/L FEU Carbon Dioxide 21 L (22-30) mmol/L BUN 32 H (9-20) mg/dL Creatinine 1.69 H (0.66-1.25) mg/dL Glucose 137 H (74-99) mg/dL POC Glucose (mg/dL) (75-99) mg/dL Hemoglobin A1c (4.2-6.1) % Prealbumin (18-36) mg/dL Urine Protein (Negative) Urine RBC (0-5) /hpf Urine Bacteria (None) /hpf Hyaline Casts (0-2) /lpf Urine Mucus (None) /hpf Urine Yeast (Budding) (None) /hpf 10/29/16 10/29/16 10/29/16 Range/Units 15:00 15:00 16:35 RBC (4.30-5.90) m/uL Hct (39.0-53.0) % D-Dimer (<0.60) mg/L FEU Carbon Dioxide (22-30) mmol/L BUN (9-20) mg/dL Creatinine (0.66-1.25) mg/dL Glucose (74-99) mg/dL POC Glucose (mg/dL) (75-99) mg/dL Hemoglobin A1c 6.5 H (4.2-6.1) % Prealbumin 10 L (18-36) mg/dL Urine Protein 1+ H (Negative) Urine RBC 14 H (0-5) /hpf Urine Bacteria Rare H (None) /hpf Hyaline Casts 17 H (0-2) /lpf Urine Mucus Rare H (None) /hpf Urine Yeast (Budding) Few H (None) /hpf 10/29/16 10/29/16 10/30/16 Range/Units 21:21 22:32 07:18 RBC (4.30-5.90) m/uL Hct (39.0-53.0) % D-Dimer (<0.60) mg/L FEU Carbon Dioxide (22-30) mmol/L BUN (9-20) mg/dL Creatinine (0.66-1.25) mg/dL Glucose (74-99) mg/dL POC Glucose (mg/dL) 172 H 163 H 135 H (75-99) mg/dL Hemoglobin A1c (4.2-6.1) % Prealbumin (18-36) mg/dL Urine Protein (Negative) Urine RBC (0-5) /hpf Urine Bacteria (None) /hpf Hyaline Casts (0-2) /lpf Urine Mucus (None) /hpf Urine Yeast (Budding) (None) /hpf 10/30/16 Range/Units 11:52 RBC (4.30-5.90) m/uL Hct (39.0-53.0) % D-Dimer (<0.60) mg/L FEU Carbon Dioxide (22-30) mmol/L BUN (9-20) mg/dL Creatinine (0.66-1.25) mg/dL Glucose (74-99) mg/dL POC Glucose (mg/dL) 122 H (75-99) mg/dL Hemoglobin A1c (4.2-6.1) % Prealbumin (18-36) mg/dL Urine Protein (Negative) Urine RBC (0-5) /hpf Urine Bacteria (None) /hpf Hyaline Casts (0-2) /lpf Urine Mucus (None) /hpf Urine Yeast (Budding) (None) /hpf Thrombosis Risk Factor Assmnt - DVT/VTE Prophylaxis DVT/VTE Prophylaxis: Pharmacologic Prophylaxis ordered - Choose All That Apply Any of the Below Risk Factors Present?: Yes Each Factor Represents 1 point: Medical pt on bed rest Other Risk Factors: Yes Each Risk Factor Represents 3 Points: Age 75 years or older Thrombosis Risk Factor Assessment Total Risk Factor Score: 4 Thrombosis Risk Factor Assessment Level: Moderate Risk Assessment and Plan Plan: 1. Acute renal sufficiency secondary to hemodynamic instability from dehydration and GI losses, patient currently is receiving IV fluids, acute gas and tried this has now resolved, last bowel movement would be at day prior to admission, blood pressure medication are currently on hold secondary to hypotensive events 2. Dizziness most likely secondary to orthostasis however in view off bilateral carotid bruit, carotid Dopplers will be done along with echocardiogram to evaluate for heart murmur 3. Near syncope secondary to dehydration and GI losses, carotid Dopplers and echocardiogram are requested, he had a CAT scan of the brain performed that was unremarkable orthostatics will be checked Cardura might be discontinued if patient condition continues to be orthostatically challenged 4. BPH without any lower tract symptomology, he would have a post void residual check while he is here his bladder was full on examination urinalysis was unremarkable 5. Diabetes mellitus type 2 with proteinuria on glimepiride 2 mg breakfast, Accu-Cheks before meals and at bedtime metformin is on hold secondary to elevated creatinine 6. Febrile illness possibly secondary to gastroenteritis has an upper respiratory tract infection which is currently improving, patient is still on IV Rocephin and this needs to be addressed in the next 24-48 hrs. Clostridium difficile a stool examination would needed to be done once diarrhea restarts back, with his persistent fever infectious disease consultation has been made 7. Hyperlipidemia on Lipitor 20 no changes made 8. Chronic interstitial fibrosis as noted on chest x-ray, patient does not have any exacerbation of current pulmonary complaints may have when necessary albuterol 9. Hypothyroidism on levothyroxine changes made 10. History of dementia, 11. History of falls, patient was seen by physical therapy and occupational therapy 12. CODE STATUS DO NOT RESUSCITATE GI prophylaxis and DVT prophylaxis
[2016-10-30 17:17] LABS: Glucose,Whole Blood 121 mg/dL (75-99)
--- NOTE | 2016-10-30 19:44 | US ---
EXAMINATION TYPE: US kidneys/renal and bladder DATE OF EXAM: 10/30/2016 COMPARISON: NONE CLINICAL HISTORY: EAMON. EXAM MEASUREMENTS: Right Kidney: 11.0 x 5.1 x 4.8 cm Left Kidney: 10.5 x 4.9 x 5.2 cm Right Kidney: No hydronephrosis or masses seen Left Kidney: 2 parapelvic cyst noted measuring 1.)1.0 x 1.2 x 1.4cm, and 2.)1.0 x 1.0 x1.1cm Bladder: wnl IMPRESSION: 1. Peripelvic cysts left kidney.
--- NOTE | 2016-10-30 19:45 | US ---
EXAMINATION TYPE: US carotid duplex BILAT DATE OF EXAM: 10/30/2016 COMPARISON: NONE CLINICAL HISTORY: bruit left worse than right. EXAM MEASUREMENTS: RIGHT: Peak Systolic Velocity (PSV) cm/sec ----- Right CCA: 61.4 ----- Right ICA: 241. ----- Right ECA: 244.0 ICA/CCA ratio: 3.9 RIGHT: End Diastole cm/sec ----- Right CCA: 12.0 ----- Right ICA: 32.7 ----- Right ECA: 0.0 LEFT: Peak Systolic Velocity (PSV) cm/sec ----- Left CCA: 68.9 ----- Left ICA: 143.8 ----- Left ECA: 261 .0 ICA/CCA ratio: 2.1 LEFT: End Diastole cm/sec ----- Left CCA: 68.9 ----- Left ICA: 143.8 ----- Left ECA: 261.0 VERTEBRALS (direction of flow): Right Vertebral: Antegrade Left Vertebral: Antegrade Severe plaque with severe velocity increases seen on right, mild velocity increase on left ICA. IMPRESSION: 1. Significant atheromatous plaquing present. 2. 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 3. Plaquing contributes to moderate stenosis of 50-69% of the left internal carotid artery. Criteria for Assigning % of Stenosis / Diameter reduction (Estimation based on the indirect measurements of the internal carotid artery velocities (ICA PSV). 1. Normal (no stenosis)=ICA PSV < 125 cm/s: ratio < 2.0: ICA EDV<40 cm/s. 2. Less than 50% stenosis=ICA PSV < 125 cm/s: ratio < 2.0: ICA EDV<40 cm/s. 3. 50 to 69% stenosis=ICA PSV of 125 to 230 cm/s: ration 2.0 ? 4.0: ICA EDV 40-100 cm/s. 4. Greater than 70% stenosis to near occlusion= ICA PSV > 230 cm/s: ratio > 4.0: ICA EDV > 100 cm/s. 5. Near occlusion= ICA PSV velocities may be low or undetectable: variable ratio and ICA EDV. 6. Total occlusion=unable to detect flow.
--- NOTE | 2016-10-30 19:59 | CONS ---
DATE OF CONSULTATION: 10/30/2016 REASON FOR CONSULTATION: Fever of unknown origin. HISTORY OF PRESENT ILLNESS: The patient is an 89-year-old male presenting to the ER with the chief complaint of weakness that has been going on for about 3 days now along with decreased appetite and diarrhea. The patient denies any significant headache or any URI symptoms. The patient does have diarrhea that has been going on for about 3 days now; bowel movement yesterday with no blood or mucus in it. Denies significant abdominal pain, though. The patient denies significant chest pain or shortness of breath or cough. Subsequently the patient was evaluated by the ER physician. The patient did have a low-grade fever down in the ER of 100.1. He did have a UA that was not significantly positive. His white count is normal at 7.2. Chest x-ray shows chronic interstitial fibrosis bilaterally; no suspicious acute infiltrate. Patient has been admitted to the hospital. He was started on Rocephin. I was asked to see him for further recommendations regarding antibiotic therapy and the source of his fever. REVIEW OF SYSTEMS: CONSTITUTIONAL: Positive for weakness. Denies any high-grade fever, though low-grade fever was recorded in the ER. EYES: No complaint. ENT: No complaint. RESPIRATORY: No complaint. CARDIOVASCULAR: No complaint. GENITOURINARY: No complaint. GASTROINTESTINAL: As per HPI. MUSCULOSKELETAL: No complaint. INTEGUMENTARY: No complaint. PSYCHOLOGIC: No complaint. ENDOCRINE: No complaint. NEUROLOGIC: No complaint. Past medical history is significant for: 1. Hypertension. 2. Hyperlipidemia. 3. Dementia. PAST SURGICAL HISTORY: 1. Cataract surgery. 2. Colonoscopy. SOCIAL HISTORY: Remote history of smoking. No drinking or drug use. FAMILY HISTORY: Mother at age of 71 from medical complications. Father with history of coronary artery disease. ALLERGIES: NO KNOWN DRUG ALLERGIES. Medications currently include: 1. Tylenol. 2. Norvasc. 3. Aspirin. 4. Lipitor. 5. Rocephin. 6. Cardura. 7. Amaryl. 8. Humalog. 9. Synthroid. 10. Zestril. 11. Ativan. 12. Narcan. On examination, blood pressure is 153/70 with a pulse of 73, temperature 97.6. T-max is 100. He is 95% on room air. General description is an elderly male lying in bed in no distress. No tachypnea or accessory muscle of respiration use. HEENT EXAMINATION: No pallor or sclerae icterus. Oral mucous membrane dry. NECK: Trachea is central. No thyromegaly. LUNGS: Unlabored breathing. Clear to auscultation anteriorly. No wheeze or crackle. HEART: S1, S2. Regular rate and rhythm. ABDOMEN: Soft. No tenderness. No guarding or rigidity. EXTREMITIES: No edema of feet. SKIN EXAMINATION: No rash or mass palpable. Neurologically the patient is awake and alert, oriented x ( ). Mood and affect normal. LABS: Hemoglobin is 13.1, white count 7.2. BUN of 32 with a creatinine of 1.69. Electrolytes have been normal. Liver enzymes are normal. Urine was not significantly positive. Chest x-ray negative for pneumonia. DIAGNOSTIC IMPRESSION AND PLAN: Patient with low-grade fever in a patient admitted to hospital with generalized weakness and mental status changes, also having a problem with diarrhea for the last few days with a question of possible acute viral gastroenteritis to be likely on the case. The patient was not exposed to antibiotics in the outpatient setting. C difficile not likely, but cannot be entirely excluded. Patient's urine was not significantly positive. No significant urinary symptoms. Chest x-ray reported to be negative. PLAN: 1. Recommend obtaining stool for C difficile and stool culture to complete the workup. 2. Aggressive IV fluid. 3. Depending upon his clinical response as well as these investigations, will adjust the medication further if needed. Thank you for this consultation. Will follow this patient along with you.
[2016-10-30] MEDS: DOXAZOSIN 4 MG TAB PO SCH (20:55)
[2016-10-30] MEDS: ASPIRIN 325 MG TAB PO SCH (20:55)
[2016-10-30] MEDS: ATORVASTATIN 20 MG TAB PO SCH (20:56)
[2016-10-30 21:01] LABS: Glucose,Whole Blood 124 mg/dL (75-99)
[2016-10-30 23:54] VITALS: RESP 16
[2016-10-31] MEDS: SODIUM CHLORIDE 0.9% 1,000 ML IV SCH ×2 (03:57→11:39)
[2016-10-31] MEDS: LEVOTHYROXINE 25 MCG TAB PO SCH (06:50)
[2016-10-31 07:17] LABS: Glucose,Whole Blood 123 mg/dL (75-99)
[2016-10-31 07:36] LABS: Basophils % (A) 1 %; CHCM 33.9; Eosinophils # (A) 0.2 k/uL (0-0.7); Eosinophils % (A) 4 %; HCT 36.8 % (39.0-53.0); HDW 2.61; HGB 12.3 gm/dL (13.0-17.5); Luc # (Auto) 0.21; Luc % (Auto) 4; Lymphocytes # (A) 1.8 k/uL (1.0-4.8); Lymphocytes % (A) 35 %; MCH 29.9 pg (25.0-35.0); MCHC 33.5 g/dL (31.0-37.0); MCV 89.2 fL (80.0-100.0); Mean Platelet Volume 6.6; Monocytes # (A) 0.3 k/uL (0-1.0); Monocytes % (A) 7 %; Neutrophils # (A) 2.5 k/uL (1.3-7.7); Neutrophils % (A) 50 %; RBC 4.12 m/uL (4.30-5.90); RDW 13.5 % (11.5-15.5); WBC 5.1 k/uL (3.8-10.6); WBC (Perox) 5.13
--- NOTE | 2016-10-31 07:58 | ECHOF ---
Referral Reason:murmur, near syncope MEASUREMENTS -------- HEIGHT: 172.7 cm WEIGHT: 74.4 kg BP: 162/66 IVSd: 1.2 cm (0.6 - 1.1) LVIDd: 4.3 cm (3.9 - 5.3) LVPWd: 1.2 cm (0.6 - 1.1) IVSs: 1.9 cm LVIDs: 3.0 cm LVPWs: 1.9 cm LAESV Index (A-L): 23.52 ml/m Ao Diam: 2.5 cm (2.0 - 3.7) AV Cusp: 1.0 cm (1.5 - 2.6) LA Diam: 3.9 cm (2.7 - 3.8) MV EXCURSION: 9.371 mm (> 18.000) MV EF SLOPE: 52 mm/s (70 - 150) EPSS: 1.4 cm MV E Simba: 1.19 m/s MV DecT: 365 ms MV A Simba: 1.35 m/s MV E/A Ratio: 0.88 AV maxP.04 mmHg AV meanP.23 mmHg RAP: 5.00 mmHg RVSP: 35.82 mmHg FINDINGS -------- Sinus rhythm. This was a technically good study. There is mild concentric left ventricular hypertrophy. Overall left ventricular systolic function is normal with, an EF between 60 - 65 %. The right ventricle is normal in size and function. Normal LA size by volume 22+/-6 ml/m2. The right atrium is normal in size. Aortic valve is trileaflet and is moderately thickened. There is no evidence of aortic regurgitation. Moderate aortic stenosis with peak/mean pressure gradient of 40.04mmHg / 22.23mmHg, the aortic valve area by continuity equation is 1.2cm. The mitral valve leaflets are mildly thickened. Mild mitral annular calcification present. There is trace to mild mitral regurgitation. Mild tricuspid regurgitation present. There is no evidence of pulmonary hypertension. The right ventricular systolic pressure, as measured by Doppler, is 35.82mmHg. The pulmonic valve was not well visualized. The aortic root size is normal. The inferior vena cava is mildly dilated. The pericardium is normal. There is no pericardial effusion. CONCLUSIONS -------- 1. Sinus rhythm. 2. There is trace to mild mitral regurgitation. 3. Mild tricuspid regurgitation present. 4. There is no evidence of pulmonary hypertension. 5. The right ventricular systolic pressure, as measured by Doppler, is 35.82mmHg. 6. The pulmonic valve was not well visualized. 7. The aortic root size is normal. 8. The inferior vena cava is mildly dilated. 9. There is no pericardial effusion. 10. This was a technically good study. 11. There is mild concentric left ventricular hypertrophy. 12. Overall left ventricular systolic function is normal with, an EF between 60 - 65 %. 13. Normal LA size by volume 22+/-6 ml/m2. 14. Aortic valve is trileaflet and is moderately thickened. 15. Moderate aortic stenosis with peak/mean pressure gradient of 40.04mmHg / 22.23mmHg, the aortic valve area by continuity equation is 1.2cm. 16. The mitral valve leaflets are mildly thickened. 17. Mild mitral annular calcification present. MOTORS ASSEMBLER: Ammon Yanez RDCS
[2016-10-31 08:27] LABS: Chloride 110 mmol/L (98-107); Glucose 121 mg/dL (74-99); Total Protein 5.9 g/dL (6.3-8.2)
[2016-10-31 08:28] LABS: ALT 28 U/L (21-72); AST 29 U/L (17-59); Alkaline Phosphatase 66 U/L (38-126); Anion Gap 9 mmol/L; Blood Urea Nitrogen 15 mg/dL (9-20); Calcium 8.5 mg/dL (8.4-10.2); Carbon Dioxide 22 mmol/L (22-30); Non-African American GFR(MDRD) >60 (>60 ml/min/1.73 sqM); Potassium 4.3 mmol/L (3.5-5.1); Sodium 141 mmol/L (137-145); Total Bilirubin 0.5 mg/dL (0.2-1.3)
[2016-10-31] MEDS: MECLIZINE 25 MG TAB PO SCH ×2 (09:09→16:52)
[2016-10-31] MEDS: GLIMEPIRIDE 2 MG TAB PO SCH (09:09)
[2016-10-31] MEDS: amLODIPine 5 MG TAB PO SCH (09:09)
[2016-10-31] MEDS: LISINOPRIL 20 MG TAB PO SCH (09:09)
[2016-10-31] MEDS: INSULIN LISPRO (humaLOG) 300 UNIT/3 ML VIAL SQ SCH ×3 (09:10→17:34)
[2016-10-31 12:31] LABS: Glucose,Whole Blood 122 mg/dL (75-99)
[2016-10-31 15:15] VITALS: BP 164/70; PULSE 65; TEMP 97.4
[2016-10-31 17:19] LABS: Glucose,Whole Blood 136 mg/dL (75-99)
--- NOTE | 2016-11-01 13:09 | DS ---
DATE OF ADMISSION: 10/29/2016 DATE OF DISCHARGE: 10/31/2016 ADMISSION DIAGNOSES: 1. Acute renal insufficiency secondary to hemodynamic instability from dehydration and GI losses. 2. Dizziness most likely secondary to dehydration. 3. Near syncope, likely secondary to the above. 4. Benign prostatic hypertrophy. 5. Diabetes type 2. 6. Low-grade fever. 7. Hyperlipidemia. 8. Chronic interstitial fibrosis. 9. Hypothyroidism. 10. History of dementia. 11. Frequent falls. DISCHARGE DIAGNOSES: 1. Dehydration. 2. Low-grade fever. 3. Likely gastroenteritis. HOSPITAL COURSE: This is an 89-year-old male who presented to the hospital with the above symptoms. Patient improved and responded well to fluid resuscitation. The patient was up ambulating in the room with minimal assistance. Denied any dizziness, lightheadedness and was tolerating diet. No nausea vomiting reported in the hospital. Patient's vital signs continue to be stable. Glucose under fair control. Patient requested to go home. Family willing to take patient home and continue managing. Patient advised to use his walker at home, as he usually does not use it, for the first few days and follow-up with his primary care physician on Wednesday of Wednesday for close follow up. Patient agreed to the current treatment plan and will follow up with Dr. Lau outpatient. Patient was discharged in stable condition.
== END 2016-10-31 18:23 | disposition home or self-care (01) | DRG 392 ==
LOC: EC 14:39 → 4MS4W 19:23
PROVIDERS: ADMIT Family Medicine; ATTEND Family Medicine
DX: A08.4 Viral intestinal infection, unspecified (principal); I95.9 Hypotension, unspecified; E86.0 Dehydration; E11.9 Type 2 diabetes mellitus without complications; F03.90 Unspecified dementia, unspecified severity, without behavioral disturbance, psychotic disturbance, mood disturbance, and anxiety; J84.10 Pulmonary fibrosis, unspecified; E03.9 Hypothyroidism, unspecified; E78.5 Hyperlipidemia, unspecified; I10 Essential (primary) hypertension; N28.9 Disorder of kidney and ureter, unspecified; N40.0 Benign prostatic hyperplasia without lower urinary tract symptoms; R29.6 Repeated falls; Z66 Do not resuscitate; Z79.82 Long term (current) use of aspirin; Z79.84 Long term (current) use of oral hypoglycemic drugs; Z79.899 Other long term (current) drug therapy; Z87.891 Personal history of nicotine dependence; Z82.49 Family history of ischemic heart disease and other diseases of the circulatory system
CPT/HCPCS: 36415; 51701; 70450; 70486; 71020; 72125; 76770; 80053; 81001; 82550; 82553; 83036; 83735; 83880; 84134; 84484; 85025; 85379; 85610; 85730; 87040; 93005; 93306; 93880; 96361; 96365; 96366; 99285

== ENCOUNTER 2016-12-09 16:37 | Emergency (ER) | payer MEDICARE ==
[2016-12-09] MEDS ORDERED: SODIUM CHLORIDE 0.9% 1,000 ML IV STA (17:18)
[2016-12-09] MEDS ORDERED: SODIUM CHLORIDE 0.9% 500 ML IV STA (17:18)
--- NOTE | 2016-12-09 17:23 | ED ---
Dizziness HPI - General Chief Complaint: Dizziness Stated Complaint: Dizzy Time Seen by Provider: 12/09/16 17:08 Source: patient, family, RN notes reviewed Mode of arrival: wheelchair Limitations: no limitations - History of Present Illness Initial Comments: This is a 89-year-old male who presents with complaints of dizziness and lightheadedness. He states he has episodes when he gets up from a sitting or lying position also he did have an episode this morning when he was reaching for cereal. He denies any headache blurry vision neck or back pain just complains some left-sided CVA area pain he believes is secondary to injuring himself when he was playing golf recently. He has no cough or phlegm production fevers chills or sweats no focal weakness. No headaches. MD Complaint: dizziness, lightheadedness - Related Data Home Medications Medication Instructions Recorded Confirmed Acetaminophen/Diphenhydramine 1 tab PO HS PRN 10/27/16 12/09/16 [Tylenol PM 500-25mg] Aspirin 325 mg PO HS 10/27/16 12/09/16 Cholecalciferol [Vitamin D3] 1,000 unit PO HS 10/27/16 12/09/16 Doxazosin [Cardura] 4 mg PO HS 10/27/16 12/09/16 Flaxseed Oil [[place]-3 Flaxseed Oil] 1,000 mg PO QAM 10/27/16 12/09/16 Glimepiride [Amaryl] 2 mg PO AC-BRKFST 10/27/16 12/09/16 Glucosamine/Chondr Amaral A Sod [Osteo 1 tab PO QAM 10/27/16 12/09/16 Bi-Flex Caplet] Levothyroxine Sodium [Synthroid] 25 mcg PO QAM 10/27/16 12/09/16 Lisinopril 20 mg PO BID 10/27/16 12/09/16 [place]-3/Dha/Epa/Fish Oil [Fish Oil 1 cap PO QAM 10/27/16 12/09/16 1,000 mg Softgel] Simvastatin 40 mg PO HS 10/27/16 12/09/16 Vitamin E 1,000 unit PO QAM 10/27/16 12/09/16 amLODIPine [Norvasc] 5 mg PO QAM 10/27/16 12/09/16 metFORMIN HCL [Glucophage] 500 mg PO HS 10/27/16 12/09/16 Previous Rx's Medication Instructions Recorded Meclizine [Antivert] 25 mg PO TID #20 tab 10/27/16 Allergies Allergy/AdvReac Type Severity Reaction Status Date / Time No Known Allergies Allergy Verified 12/09/16 17:20 Review of Systems ROS Statement: Those systems with pertinent positive or pertinent negative responses have been documented in the HPI. ROS Other: All systems not noted in ROS Statement are negative. Past Medical History Past Medical History: Dementia, Hyperlipidemia, Hypertension History of Any Multi-Drug Resistant Organisms: None Reported Past Surgical History: No Surgical Hx Reported (Except for cataract surgery bilateral colonoscopy in [place] at least 5 years ago) Additional Past Surgical History / Comment(s): cataracts Past Anesthesia/Blood Transfusion Reactions: No Reported Reaction Past Psychological History: No Psychological Hx Reported Smoking Status: Former smoker Past Alcohol Use History: Occasional Past Drug Use History: None Reported - Past Family History Mother Family Medical History: No Reported History ( at age 71 from medical complications) Father Family Medical History: Coronary Artery Disease (CAD) ( at age 69) Brother(s) Family Medical History: Coronary Artery Disease (CAD) Sister(s) Family Medical History: No Reported History Son(s) Family Medical History: Diabetes Mellitus General Exam - General Exam Comments Initial Comments: This is a well-developed well-nourished awake alert oriented 3 male Limitations: no limitations ENT exam: Present: mucous membranes dry Course Vital Signs 12/09/16 12/09/16 12/09/16 16:41 17:31 17:44 Temperature 97.3 F L Pulse Rate 63 64 Pulse Rate [ 70 Sitting Pulse Oximetery] Pulse Rate [ 66 Standing Pulse Oximetery] Pulse Rate [ 65 Supine Pulse Oximetery] Respiratory 18 20 Rate Blood Pressure 162/66 116/56 Blood Pressure 148/69 [Sitting] Blood Pressure 112/54 [Standing] Blood Pressure 182/72 [Supine] O2 Sat by Pulse 97 95 Oximetry 12/09/16 18:39 Temperature 97.8 F Pulse Rate 78 Pulse Rate [ Sitting Pulse Oximetery] Pulse Rate [ Standing Pulse Oximetery] Pulse Rate [ Supine Pulse Oximetery] Respiratory 18 Rate Blood Pressure 126/68 Blood Pressure [Sitting] Blood Pressure [Standing] Blood Pressure [Supine] O2 Sat by Pulse 99 Oximetry EKG Findings - EKG Results: EKG: interpreted by JOSE LUIS, sinus rhythm (Sinus rhythm a rate of 62. Interval 160 QRS duration 120 daily since QTC of 414/420 nonspecific interventricular conduction delay nonspecific ST-T wave configuration.) Medical Decision Making - Medical Decision Making I did reevaluate the patient is feeling improved I did discuss the findings with him and his son. Presentation is consistent with orthostatic hypotension and dehydration. Additionally the pain he feels in the left chest wall is likely secondary to muscle strain from playing golf which she relates that he has done recently. - Lab Data Result diagrams: 12/09/16 17:30 12/09/16 17:30 Lab Results 12/09/16 12/09/16 12/09/16 Range/Units 17:30 17:30 17:30 WBC 7.3 (3.8-10.6) k/uL RBC 4.79 (4.30-5.90) m/uL Hgb 14.1 (13.0-17.5) gm/dL Hct 41.9 (39.0-53.0) % MCV 87.6 (80.0-100.0) fL MCH 29.5 (25.0-35.0) pg MCHC 33.7 (31.0-37.0) g/dL RDW 14.2 (11.5-15.5) % Plt Count 186 (150-450) k/uL Neutrophils % 52 % Lymphocytes % 37 % Monocytes % 6 % Eosinophils % 3 % Basophils % 1 % Neutrophils # 3.8 (1.3-7.7) k/uL Lymphocytes # 2.7 (1.0-4.8) k/uL Monocytes # 0.4 (0-1.0) k/uL Eosinophils # 0.2 (0-0.7) k/uL Basophils # 0.0 (0-0.2) k/uL Sodium 137 (137-145) mmol/L Potassium 4.0 (3.5-5.1) mmol/L Chloride 101 (98-107) mmol/L Carbon Dioxide 25 (22-30) mmol/L Anion Gap 11 mmol/L BUN 21 H (9-20) mg/dL Creatinine 1.12 (0.66-1.25) mg/dL Est GFR (MDRD) Af Amer >60 (>60 ml/min/1.73 sqM) Est GFR (MDRD) Non-Af >60 (>60 ml/min/1.73 sqM) Glucose 154 H (74-99) mg/dL Calcium 9.3 (8.4-10.2) mg/dL Magnesium 1.7 (1.6-2.3) mg/dL Total Bilirubin 0.5 (0.2-1.3) mg/dL AST 25 (17-59) U/L ALT 29 (21-72) U/L Alkaline Phosphatase 71 (38-126) U/L Total Creatine Kinase 60 (55-170) U/L CK-MB (CK-2) 1.0 (0.0-2.4) ng/mL CK-MB (CK-2) Rel Index 1.7 Troponin I <0.012 (0.000-0.034) ng/mL Total Protein 6.8 (6.3-8.2) g/dL Albumin 4.1 (3.5-5.0) g/dL Urine Color Urine Appearance (Clear) Urine pH (5.0-8.0) Ur Specific [place] (1.001-1.035) Urine Protein (Negative) Urine Glucose (UA) (Negative) Urine Ketones (Negative) Urine Blood (Negative) Urine Nitrite (Negative) Urine Bilirubin (Negative) Urine Urobilinogen (<2.0) mg/dL Ur Leukocyte Esterase (Negative) Urine WBC (0-5) /hpf Ur Squamous Epith Cells (0-4) /hpf Calcium Oxalate Crystal (None) /hpf Amorphous Sediment (None) /hpf Hyaline Casts (0-2) /lpf Urine Mucus (None) /hpf 12/09/16 Range/Units 18:35 WBC (3.8-10.6) k/uL RBC (4.30-5.90) m/uL Hgb (13.0-17.5) gm/dL Hct (39.0-53.0) % MCV (80.0-100.0) fL MCH (25.0-35.0) pg MCHC (31.0-37.0) g/dL RDW (11.5-15.5) % Plt Count (150-450) k/uL Neutrophils % % Lymphocytes % % Monocytes % % Eosinophils % % Basophils % % Neutrophils # (1.3-7.7) k/uL Lymphocytes # (1.0-4.8) k/uL Monocytes # (0-1.0) k/uL Eosinophils # (0-0.7) k/uL Basophils # (0-0.2) k/uL Sodium (137-145) mmol/L Potassium (3.5-5.1) mmol/L Chloride (98-107) mmol/L Carbon Dioxide (22-30) mmol/L Anion Gap mmol/L BUN (9-20) mg/dL Creatinine (0.66-1.25) mg/dL Est GFR (MDRD) Af Amer (>60 ml/min/1.73 sqM) Est GFR (MDRD) Non-Af (>60 ml/min/1.73 sqM) Glucose (74-99) mg/dL Calcium (8.4-10.2) mg/dL Magnesium (1.6-2.3) mg/dL Total Bilirubin (0.2-1.3) mg/dL AST (17-59) U/L ALT (21-72) U/L Alkaline Phosphatase (38-126) U/L Total Creatine Kinase (55-170) U/L CK-MB (CK-2) (0.0-2.4) ng/mL CK-MB (CK-2) Rel Index Troponin I (0.000-0.034) ng/mL Total Protein (6.3-8.2) g/dL Albumin (3.5-5.0) g/dL Urine Color Yellow Urine Appearance Cloudy (Clear) Urine pH 5.5 (5.0-8.0) Ur Specific [place] 1.019 (1.001-1.035) Urine Protein 1+ H (Negative) Urine Glucose (UA) Negative (Negative) Urine Ketones Trace H (Negative) Urine Blood Negative (Negative) Urine Nitrite Negative (Negative) Urine Bilirubin Negative (Negative) Urine Urobilinogen 2.0 (<2.0) mg/dL Ur Leukocyte Esterase Trace H (Negative) Urine WBC 7 H (0-5) /hpf Ur Squamous Epith Cells <1 (0-4) /hpf Calcium Oxalate Crystal Many H (None) /hpf Amorphous Sediment Rare H (None) /hpf Hyaline Casts 43 H (0-2) /lpf Urine Mucus Rare H (None) /hpf - Radiology Data Radiology results: report reviewed (I did review the imaging and report no acute findings.), image reviewed Disposition Clinical Impression: Orthostatic hypotension, Dehydration, Muscle strain Disposition: HOME SELF-CARE Condition: Good Instructions: Dizziness (ED), Dehydration (ED), Muscle Strain (ED) Referrals: Tommy Lau MD [Primary Care Provider] - 1-2 days
[2016-12-09 17:53] LABS: Basophils % (A) 1 %; CH 29.8; CHCM 34.2; Eosinophils # (A) 0.2 k/uL (0-0.7); Eosinophils % (A) 3 %; HCT 41.9 % (39.0-53.0); HDW 2.53; HGB 14.1 gm/dL (13.0-17.5); Luc # (Auto) 0.16; Luc % (Auto) 2; Lymphocytes # (A) 2.7 k/uL (1.0-4.8); Lymphocytes % (A) 37 %; MCH 29.5 pg (25.0-35.0); MCHC 33.7 g/dL (31.0-37.0); MCV 87.6 fL (80.0-100.0); Mean Platelet Volume 6.9; Monocytes # (A) 0.4 k/uL (0-1.0); Monocytes % (A) 6 %; Neutrophils # (A) 3.8 k/uL (1.3-7.7); Neutrophils % (A) 52 %; RBC 4.79 m/uL (4.30-5.90); RDW 14.2 % (11.5-15.5); WBC 7.3 k/uL (3.8-10.6); WBC (Perox) 7.09
--- NOTE | 2016-12-09 17:57 | XR ---
EXAMINATION TYPE: XR chest 2V DATE OF EXAM: 12/09/2016 COMPARISON: 10/29/2016 HISTORY: Shortness of breath TECHNIQUE: Frontal and lateral views of the chest are obtained. FINDINGS: Scattered senescent parenchymal changes noted. Hyperinflation compatible with COPD. Right perihilar infiltrate is difficult to exclude. Heart size is stable. Mediastinal structures are stable and grossly unremarkable. No evidence for hilar prominence. Degenerative changes dorsal spine. IMPRESSION: 1. Right perihilar infiltrate is difficult to exclude.
[2016-12-09 18:03] LABS: ALT 29 U/L (21-72); AST 25 U/L (17-59); Alkaline Phosphatase 71 U/L (38-126); Anion Gap 11 mmol/L; Blood Urea Nitrogen 21 mg/dL (9-20); Calcium 9.3 mg/dL (8.4-10.2); Carbon Dioxide 25 mmol/L (22-30); Chloride 101 mmol/L (98-107); Glucose 154 mg/dL (74-99); Magnesium 1.7 mg/dL (1.6-2.3); Non-African American GFR(MDRD) >60 (>60 ml/min/1.73 sqM); Sodium 137 mmol/L (137-145); Total Bilirubin 0.5 mg/dL (0.2-1.3); Total Protein 6.8 g/dL (6.3-8.2)
[2016-12-09 18:12] LABS: Creatine Kinase 60 U/L (55-170)
[2016-12-09 18:25] LABS: Troponin I <0.012 ng/mL (0.000-0.034)
[2016-12-09 18:50] LABS: Amorphous Sediment,Urine Rare /hpf; Appearance,Urine Cloudy (Clear); Bilirubin,Urine Negative (Negative); Calcium Oxalate Crystals,Urine Many /hpf; Glucose,Urine (UA) Negative (Negative); Ketones,Urine Trace (Negative); Leukocyte Esterase,Urine Trace (Negative); Mucus,Urine Rare /hpf; Nitrite,Urine Negative (Negative); PH, Urine 5.5 (5.0-8.0); Particle Count 3547; Protein,Urine 1+ (Negative); Specific Gravity,Urine 1.019 (1.001-1.035); Squamous Epithelial Cell,Urine <1 /hpf (0-4); UA Billing (MACRO vs. MICRO) MICRO; WBC,Urine 7 /hpf (0-5)
[2016-12-09 19:38] VITALS: PULSE 63
[2016-12-09 20:29] VITALS: BP 136/70; RESP 18; TEMP 98.4
--- NOTE | 2016-12-14 08:36 | CDI ---
Documentation Clarification OP Dear Dr. Arden Raygoza. Please send the physician query as " Documentation clarification OP Please do addendum to ED clinical impression report that describes MUSCLE STRAIN, please include the location of muscle sprain Thank you, Jude [employer] Professional If you have any questions, please contact [facility] at [phone] [facility]
== END 2016-12-09 20:24 | disposition home or self-care (01) ==
LOC: EC 16:37
DX: I95.1 Orthostatic hypotension (principal); E86.0 Dehydration; T14.8 Other injury of unspecified body region; E78.5 Hyperlipidemia, unspecified; I10 Essential (primary) hypertension; F03.90 Unspecified dementia, unspecified severity, without behavioral disturbance, psychotic disturbance, mood disturbance, and anxiety; Z79.82 Long term (current) use of aspirin; Z79.84 Long term (current) use of oral hypoglycemic drugs; Z79.899 Other long term (current) drug therapy; Z87.891 Personal history of nicotine dependence; X58.XXXA Exposure to other specified factors, initial encounter
CPT/HCPCS: 36415; 71020; 80053; 81001; 82550; 82553; 83735; 84484; 85025; 93005; 96360; 96361; 99284

== ENCOUNTER 2017-02-02 08:03 | Day surgery (SDC) | payer MEDICARE ==
[2017-02-01 08:54] VITALS: BMI 25.0
[~2017-02-02 08:03] MED LIST: LACTATED RINGERS 1,000 ML IV SCH; LIDOCAINE 1% 20 ML VIAL (10MG/ML) FOR IV START INTRADERMA PRN
[2017-02-02 08:45] VITALS: TEMP 97.8
[2017-02-02 08:48] LABS: Glucose,Whole Blood 124 mg/dL (75-99)
[2017-02-02] MEDS ORDERED: PROPOFOL 10 MG/ML 20 ML VIAL IV ONE (09:29)
[2017-02-02 10:14] VITALS: RESP 16
[2017-02-02 10:40] VITALS: BP 178/76; PULSE 56
--- NOTE | 2017-02-02 21:10 | P.PCN ---
Date of Procedure: 02/02/17 Procedure(s) Performed: Procedure: 1. Esophagogastroduodenoscopy and biopsy. 2. Total colonoscopy and biopsy. Preoperative diagnosis: Epigastric pain and change in bowel habits. Postoperative diagnosis: 1. Small sliding hiatal hernia with no obvious esophagitis or complicated reflux disease. 2. Mild antral gastritis. 3. Sigmoid diverticulosis. 4. Multiple biopsies obtained from the duodenum, antrum , esophagus and right colon. Preparation: HalfLytely prep. Sedation: Was provided by anesthesia. Brief clinical history: The patient is an 89-year-old male who is referred for this evaluation because of epigastric pain and change in bowel habits. The patient did not have any recent endoscopic workup. Procedure: With the patient on his left lateral decubitus position and after informed consent and adequate sedation, I passed the Olympus-GIF 160 video upper endoscope through the cricopharyngeus down the esophagus. The esophagus appeared healthy with no obvious erosions, ulcers, strictures or Wisdom's esophagus. There was a small sliding hiatal hernia then the endoscope was advanced to the rest of the stomach which was insufflated with air and inspected in detail including the retroflex view in the cardia. There was some mottling and erythema in the antrum but no ulcers or erosions. Pyloric channel , duodenal bulb, post bulbar area and descending duodenum appeared within normal limits. Because of his symptoms, I obtained biopsies from the duodenum, antrum and esophagus then the endoscope was withdrawn and I proceeded to do colonoscopy. Perianal area did not show any fissures or fistulas. There were no masses felt on digital rectal examination. The Olympus CFQ 160L video colonoscope was used and was inserted in the rectum in the usual fashion and advanced without difficulty to the cecum. There were several diverticular orifices seen scattered in the sigmoid with no evidence of acute diverticulitis or strictures. The mucosa appeared healthy. No polyps or tumors were seen. I retroflexed the endoscope in the rectum before the endoscope was withdrawn and I obtained biopsies from the right colon to rule out microscopic colitis. The patient tolerated the procedure well. Plan: The patient was reassured and I discussed with his son. Will await biopsy results and make further recommendations based on his course and biopsy results. He will follow-up with you as planned and I will be happy to see in the office of his symptoms persist.
== END 2017-02-02 11:15 | disposition home or self-care (01) ==
LOC: ORWHC2ENDO 08:03
DX: K29.50 Unspecified chronic gastritis without bleeding (principal); K44.9 Diaphragmatic hernia without obstruction or gangrene; K57.30 Diverticulosis of large intestine without perforation or abscess without bleeding; E11.9 Type 2 diabetes mellitus without complications; I10 Essential (primary) hypertension; E78.5 Hyperlipidemia, unspecified; Z87.891 Personal history of nicotine dependence; E07.9 Disorder of thyroid, unspecified; F03.90 Unspecified dementia, unspecified severity, without behavioral disturbance, psychotic disturbance, mood disturbance, and anxiety; K21.9 Gastro-esophageal reflux disease without esophagitis; Z79.899 Other long term (current) drug therapy
CPT/HCPCS: 88305; 88342; 45380; 43239; J2704